=== PATIENT | male | born 1975 | race American Indian/Alaskan Native ===

== ENCOUNTER 2019-04-16 09:30 | Emergency (ER) | payer SELFPAY ==
--- NOTE | 2019-04-16 11:10 | Emergency Department Report ---
ED Male HPI - General Chief complaint: Pain General Stated complaint: HERNIA, GROIN IS SWOLLEN Time Seen by Provider: 04/16/19 11:06 Source: patient Mode of arrival: Ambulatory Limitations: No Limitations - History of Present Illness Initial comments: Mr. Mullins is a 43-year-old male with history of hypertension and left-sided inguinal hernia who has had more pain in the left groin. The hernia has existed for several years. No history of surgery to repair the hernia. 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 He has more pulling in the area. The hernia is mostly "out". However it has become bigger. He has worsening constipation. Last bowel movement this morning after drinking milk of magnesia. Denies fever. Denies vomiting. He is currently pain-free. MD Complaint: groin pain -: Gradual, month(s) (Worse over the past month) Radiation: none Severity: mild Quality: dull Consistency: now resolved Improves with: supine Worsens with: other (Walking movement standing) other (Constipation) - Related Data Previous Rx's Medication Instructions Recorded Last Taken Type hydroCHLOROthiazide 25 mg PO DAILY #7 tablet 06/18/13 Unknown Rx [Hydrochlorothiazide] lisinopriL [Zestril TAB] 20 mg PO DAILY #7 tablet 06/18/13 Unknown Rx Allergies Allergy/AdvReac Type Severity Reaction Status Date / Time No Known Allergies Allergy Verified 06/18/13 21:56 ED Review of Systems ROS: Stated complaint: HERNIA, GROIN IS SWOLLEN Other details as noted in HPI Comment: All other systems reviewed and negative Constitutional: denies: fever, malaise Respiratory: denies: cough Cardiovascular: denies: chest pain Gastrointestinal: constipation. denies: abdominal pain, nausea, vomiting ED Past Medical Hx - Past Medical History Previous Medical History?: Yes Hx Hypertension: Yes Additional medical history: left inquinal hernia - Surgical History Past Surgical History?: Yes Additional Surgical History: lumbar diskectomy January 2013 - Social History Smoking Status: Current Every Day Smoker Substance Use Type: Alcohol, Marijuana - Medications Home Medications: Home Medications Medication Instructions Recorded Confirmed Last Taken Type hydroCHLOROthiazide 25 mg PO DAILY #7 tablet 06/18/13 Unknown Rx [Hydrochlorothiazide] lisinopriL [Zestril TAB] 20 mg PO DAILY #7 tablet 06/18/13 Unknown Rx ED Physical Exam - General Limitations: No Limitations General appearance: alert, in no apparent distress - Head Head exam: Present: atraumatic, normocephalic - Eye Eye exam: Present: normal appearance - ENT ENT exam: Present: mucous membranes moist - Neck Neck exam: Present: normal inspection, full ROM - Respiratory Respiratory exam: Present: normal lung sounds bilaterally. Absent: respiratory distress, wheezes, rales, rhonchi - Cardiovascular Cardiovascular Exam: Present: regular rate, normal rhythm, normal heart sounds. Absent: systolic murmur, diastolic murmur, rubs, gallop - GI/Abdominal GI/Abdominal exam: Present: soft, normal bowel sounds. Absent: distended, tenderness, guarding, rebound - exam: Present: normal inspection, circumcision, other (4 cm left groin hernia easily reducible soft mobile). Absent: testicular tenderness, scrotal swelling - Extremities Exam Extremities exam: Present: normal inspection - Neurological Exam Neurological exam: Present: alert, oriented X3 - Psychiatric Psychiatric exam: Present: normal affect, normal mood - Skin Skin exam: Present: warm, dry, intact, normal color. Absent: rash ED Course Vital Signs 04/16/19 04/16/19 09:45 11:03 Temperature 98.3 F Pulse Rate 122 H 100 H Respiratory 18 18 Rate Blood Pressure 146/102 Blood Pressure 142/103 [Left] O2 Sat by Pulse 94 97 Oximetry ED Medical Decision Making - Medical Decision Making Mr. Mullins presents with left inguinal hernia which is soft mobile reducible without evidence of incarceration strangulation or obstruction. Refer to general surgeon. Given verbal and written education. Initial tachycardia upon triage arrival resolved without intervention repeat heart rate 100 bpm. Critical care attestation.: If time is entered above; I have spent that time in minutes in the direct care of this critically ill patient, excluding procedure time. ED Disposition Clinical Impression: Left inguinal hernia Disposition: DC-01 TO HOME OR SELFCARE Is pt being admited?: No Does the pt Need Aspirin: No Condition: Stable Instructions: Inguinal Hernia (ED) Referrals: KIP JOHNSON MD [Staff Physician] - 7-10 days Forms: Work/School Release Form(ED)
[2019-04-16 11:12] VITALS: BP 142/103
== END 2019-04-16 11:14 | disposition home or self-care (01) ==
LOC: ED 09:30
DX: K40.90 Unilateral inguinal hernia, without obstruction or gangrene, not specified as recurrent (principal); I10 Essential (primary) hypertension; F17.200 Nicotine dependence, unspecified, uncomplicated; F12.10 Cannabis abuse, uncomplicated
CPT/HCPCS: 99282